=== PATIENT | female | born 1965 | race Caucasian/White ===

== ENCOUNTER 2020-05-29 10:39 | Day surgery (SDC) | payer OTHER ==
[2020-05-27 13:24] LABS: HEMATOCRIT 38.6 % (36-46); HEMOGLOBIN 12.1 g/dL (12.0-16.0); LYMPHOCYTES # (AUTO) 1.2 K/uL (1.0-4.8); LYMPHOCYTES % (AUTO) 24.4 % (22.0-44.0); MEAN CORPUSCULAR HEMOGLOBIN 29.5 pg (26.0-34.0); MEAN CORPUSCULAR HGB CONC 31.3 G/dL (31.0-37.0); MEAN CORPUSCULAR VOLUME 94 fL (80-100); MONOCYTES # (AUTO) 0.5 K/uL (0.1-1.0); MONOCYTES % (AUTO) 10.5 % (2.0-9.0); NEUTROPHILS % (AUTO) 61.1 % (40.0-70.0); PLATELET COUNT (AUTO) 123 K/uL (150-450); RED CELL DISTRIBUTION WIDTH 14.8 % (11.5-14.5)
[2020-05-27 13:38] LABS: CALCIUM, TOTAL 8.3 mg/dL (8.8-10.5); CREATININE 9.49 mg/dL (0.60-1.30)
[2020-05-27 13:41] LABS: POTASSIUM 7.3 mmol/L (3.5-5.1)
[2020-05-27 13:55] LABS: INR 1.1 (0.9-1.1); PROTHROMBIN TIME 11.3 SEC (9.4-11.6)
[~2020-05-29] VITALS: Ht 170.2 cm; Wt 68.2 kg
[~2020-05-29 10:39] MED LIST: SODIUM CHLORIDE 0.9% 1,000 ML IV ONE
[2020-05-29] MEDS ORDERED: DEXAMETHASONE SOD PHOS 4 MG/ML VIAL IVP ONE (10:40)
[2020-05-29] MEDS ORDERED: ONDANSETRON HCL 4 MG/2 ML VIAL IVP ONE (10:40)
[2020-05-29] MEDS ORDERED: FentaNYL CITRATE-PF 100 MCG/2 ML VIAL IVP ONE (10:40)
[2020-05-29] MEDS ORDERED: MIDAZOLAM HCL 2 MG/2 ML VIAL IVP ONE (10:40)
[2020-05-29] MEDS ORDERED: HEPARIN SODIUM,PORCINE 1,000 UNITS/ML VIAL IVP ONE (10:40)
[2020-05-29] MEDS ORDERED: SODIUM CHLORIDE 0.9% 1,000 ML ONE (10:52)
[2020-05-29 11:34] LABS: CALCIUM, TOTAL 8.6 mg/dL (8.8-10.5); CREATININE 5.7 mg/dL (0.60-1.30); POTASSIUM 4.8 mmol/L (3.5-5.1)
[2020-05-29] MEDS ORDERED: LIDOCAINE/PF 1% 30 ML VIAL ONE (11:55)
[2020-05-29] MEDS ORDERED: FentaNYL CITRATE-PF 100 MCG/2 ML VIAL IVP PRN (12:15)
[2020-05-29] MEDS ORDERED: MEPERIDINE-PF 25 MG/ML VIAL IVP PRN (12:15)
[2020-05-29] MEDS ORDERED: HYDROmorphone 2 MG/ML SYRINGE IVP PRN (12:15)
[2020-05-29] MEDS ORDERED: HEPARIN SODIUM,PORCINE 1,000 UNITS/ML VIAL ONE (13:21)
[2020-05-29] MEDS ORDERED: SODIUM CHLORIDE 0.9% 0 ML ONE (13:21)
[2020-05-29] MEDS ORDERED: HEPARIN SODIUM,PORCINE 5,000 UNITS/ML VIAL ONE (13:21)
[2020-05-29] MEDS ORDERED: SODIUM CHLORIDE 0.9% 20 ML ONE (13:21)
[2020-05-29] MEDS ORDERED: SODIUM CHLORIDE 0.9% 100 ML ONE (13:28)
[2020-05-29] MEDS ORDERED: SODIUM CHLORIDE 0.9% 30 ML ONE (13:28)
[2020-05-29] MEDS ORDERED: LABETALOL HCL 5 MG/ML 20 ML VIAL IVP ONE ×3 (15:21→16:00)
[2020-05-29 15:40] VITALS: BP 200/75
[2020-05-29] MEDS ORDERED: HydrALAZINE HCL 20 MG/ML VIAL IVP ONE (16:00)
[2020-05-29] MEDS ORDERED: HydrALAZINE HCL 20 MG/ML VIAL ONE (16:11)
== END 2020-05-29 17:20 | disposition home or self-care (01) ==
LOC: SURGERY 10:39
PROVIDERS: ATTEND Surgery
DX: I12.0 Hypertensive chronic kidney disease with stage 5 chronic kidney disease or end stage renal disease (principal); N18.6 End stage renal disease; B18.2 Chronic viral hepatitis C; K74.60 Unspecified cirrhosis of liver; Z83.3 Family history of diabetes mellitus; Z82.49 Family history of ischemic heart disease and other diseases of the circulatory system
CPT/HCPCS: 36415 ×2; 36821; 80048 ×2; 85025; 85610; 85730; 87635; J0360; J0690; J1100; J1644 ×2; J2250; J2405; J3010; J3490 ×2; J7030; J7050